=== PATIENT | male | born 1975 | race African-American/Black ===

== ENCOUNTER 2018-07-20 20:59 | Emergency (ER) | payer MEDICAID ==
[~2018-07-20] VITALS: Ht 165.1 cm; Wt 58.4 kg
[~2018-07-20 20:59] MED LIST: CLIN300C53 PO
[2018-07-20] MEDS ORDERED: CEPH-572 PO (21:54)
[2018-07-20 22:30] VITALS: BP 155/81
== END 2018-07-20 22:34 | disposition home or self-care (01) ==
LOC: ER 21:01
DX: M79.673 Pain in unspecified foot (principal); G60.0 Hereditary motor and sensory neuropathy; Z98.890 Other specified postprocedural states; Z79.2 Long term (current) use of antibiotics
CPT/HCPCS: 99283

== ENCOUNTER 2021-04-16 15:05 | Emergency (ER) | payer MEDICAID ==
[~2021-04-16] VITALS: Ht 167.6 cm; Wt 59.0 kg
[2021-04-16 15:43] VITALS: BP 169/98
== END 2021-04-16 18:33 | disposition home or self-care (01) ==
LOC: ER 15:06
DX: Z02.89 Encounter for other administrative examinations (principal); K40.90 Unilateral inguinal hernia, without obstruction or gangrene, not specified as recurrent; Z98.890 Other specified postprocedural states; Z79.2 Long term (current) use of antibiotics
CPT/HCPCS: 99281

== ENCOUNTER 2021-08-29 06:39 | Day surgery (SDC) | payer MEDICAID ==
[2021-08-23 10:10] LABS: CLARITY,URINE CLEAR (Clear); COLOR,URINE YELLOW (Yellow); GLUCOSE, URINE NEGATIVE (Neg); KETONES,URINE NEGATIVE (Neg); LEUKOCYTE ESTERASE ,URINE NEGATIVE (Neg); NITRITES, URINE NEGATIVE (Neg); OCCULT BLOOD,URINE NEGATIVE (Neg); PROTEIN,URINE NEGATIVE (Neg); UROBILINOGEN,URINE 0.2 E.U/dL (0.2-1.0)
[2021-08-23 10:22] LABS: BASOPHILS % (AUTO) 0.5 % (0-1); EOSINOPHILS # (AUTO) 0.3 X10'3 (0-0.9); EOSINOPHILS % (AUTO) 4.4 % (0-6); LYMPHOCYTES # (AUTO) 2.9 X10'3 (1.1-4.8); LYMPHOCYTES % (AUTO) 43.3 % (21-51); MEAN CORPUSCULAR HGB CONC 33.4 g/dL (33.0-36.5); MEAN CORPUSCULAR VOLUME 83.9 FL (78-98); MEAN PLATELET VOLUME 6.9 FL (7.4-10.4); MONOCYTES # (AUTO) 0.7 X10'3 (0-0.9); MONOCYTES % (AUTO) 9.8 % (2-12); NEUTROPHILS # (AUTO) 2.8 X10'3 (1.8-7.7); PRE OP HEMATOCRIT 43.7 % (42.0-52.0); PRE OP HEMOGLOBIN 14.6 g/dL (14.0-17.9); PRE OP PLATELET COUNT 320 X10'3 (140-440); RED BLOOD COUNT 5.21 X10'6 (4.70-6.10); RED CELL DISTRIBUTION WIDTH 14.9 % (11.5-14.5)
[2021-08-23 10:38] LABS: ALBUMIN 3.9 G/DL (3.4-5.0); ALBUMIN/GLOBULIN RATIO 1.1 (1.1-1.5); ALKALINE PHOSPHATASE 86 IU/L (46-116); BLOOD UREA NITROGEN 10 MG/DL (7-18); BUN/CREATININE RATIO 11.9 (5.4-32.0); CALCIUM 9.3 MG/DL (8.5-10.1); CHLORIDE 106 MMOL/L (99-107); CREATININE 0.84 MG/DL (0.60-1.10); PRE OP ALT 35 U/L (30-65); PRE OP ANION GAP 10 (8-16); PRE OP AST 17 U/L (10-37); PRE OP BILIRUB, TOTAL 0.5 MG/DL (0.0-1.0); PRE OP GLUCOSE 87 MG/DL (70-104); PRE OP POTASSIUM 4.1 MMOL/L (3.4-5.1); PRE OP SODIUM 145 MMOL/L (135-145); TOTAL CARBON DIOXIDE 28.7 MMOL/L (24-32); TOTAL PROTEIN 7.3 G/DL (6.4-8.2); eGFR > 90 ML/MIN
[2021-08-23 11:16] LABS: UA COLLECTION TYPE CLN CATCH MIDSTREAM
[2021-08-29] VITALS (10 sets, daily range): BP systolic 129–148; BP diastolic 77–104
[~2021-08-29] VITALS: Ht 167.6 cm; Wt 56.3 kg
[~2021-08-29 06:39] MED LIST changes: -CLIN300C53 PO; +NO HOME MEDS; +albuterol 2.5 MG/3 ML nebule NEB ONE; +cefazolin/dext.iso 2gm/50ml IV ONE; +famotidine 20mg tablet PO ONE; +ringers solution, lacted 1,000 ML IV SCH
[2021-08-29] MEDS ORDERED: IBUP-1985 PO (07:36)
[2021-08-29] MEDS ORDERED: BUPIVAcaine 0.5% inj/PF 30 ML ONE (09:56)
[2021-08-29] MEDS ORDERED: bacitracin 15gm ointment TP ONE (09:56)
[2021-08-29] MEDS ORDERED: sevoflurane 250ml liquid IH ONE (10:39)
[2021-08-29] MEDS ORDERED: propofol inj 20 ML IV ONE (10:40)
[2021-08-29] MEDS ORDERED: fentaNYL /PF 50mcg/ml 5ml ampule ONE (10:40)
[2021-08-29] MEDS ORDERED: midazolam 1 mg/ML 2ml injection ONE (10:40)
[2021-08-29] MEDS ORDERED: BUPIVAcaine 0.5% inj/PF 30 ml vial IJ ONE (11:11)
[2021-08-29] MEDS ORDERED: proCHLORperazine 10 MG/2 ml inj IV PRN (11:45)
[2021-08-29] MEDS ORDERED: ondansetron/PF 4mg/2ml inj IV PRN (11:45)
[2021-08-29] MEDS ORDERED: meperidine/PF 25mg/ml syringe IV PRN ×3 (11:45)
[2021-08-29] MEDS ORDERED: morphine 4 MG/ML inj SYRINge IV PRN (11:45)
[2021-08-29] MEDS ORDERED: ringers solution, lacted 1,000 ML IV SCH (11:45)
[2021-08-29] MEDS ORDERED: morphine 2 MG/ML inj. syringe IV PRN (11:45)
== END 2021-08-29 12:52 | disposition home or self-care (01) ==
LOC: PAS 06:39
PROVIDERS: ATTEND Surgery
DX: K40.90 Unilateral inguinal hernia, without obstruction or gangrene, not specified as recurrent (principal); I48.91 Unspecified atrial fibrillation; F17.210 Nicotine dependence, cigarettes, uncomplicated; Z98.890 Other specified postprocedural states; Z79.899 Other long term (current) drug therapy; Z20.822 Contact with and (suspected) exposure to COVID-19
CPT/HCPCS: 36415; 49505; 80053; 81003; 82948; 85025; 93005; J0690; J2250; J2704; J3010; J7030; J7120; S0020; U0003; U0005; Z7506; Z7508; Z7512; A4215; A4618; A7000